=== PATIENT | male | born 1985 | race Caucasian/White ===

== ENCOUNTER 2017-09-09 00:18 | Emergency (ER) | payer MEDICAID, SELFPAY ==
[2017-09-09 00:19] VITALS: BP 108/68; PULSE 70; RESP 18; TEMP 36.6; O2SAT 99; BMI 19.2
--- NOTE | 2017-09-09 00:31 | RAD_ITS ---
STUDY: X-RAY - RIGHT KNEE REASON FOR EXAM: Male, 32 years old. Pain entire knee x3 days TECHNIQUE: 3 view(s) of the knee. COMPARISON: None. FINDINGS: Normal visualized distal femur. Normal visualized proximal tibia and fibula. Normal proximal tibiofibular articulation. Mild narrowing of the medial femorotibial compartment. Normal lateral femorotibial compartment. Normal patellofemoral articulation. There is no demonstrated joint effusion. The soft tissue structures are unremarkable. RAD/Knee 3 Views IMPRESSION: Narrowing of the medial femoral tibial compartment possibly due to early degeneration. Electronically Signed: Cayla Kim MD at 3:37 EDT , Service support ,
--- NOTE | 2017-09-09 00:32 | ED.VISSUMM ---
- ER Visit Summary Date of Service: 09/09/17 Chief Complaint: Right knee pain History of Present Illness: The patient is a 3 day history of nontraumatic right knee pain for the past 3 days. Symptoms worse with prolonged ambulation. States knee did lock up a couple times today. Intermittent Tylenol use. History of similar with weather changes. He denies history of gastric ulcers or kidney injuries. No paresthesias. No previous evaluations. Physical Examination: General: Alert and oriented ?3, no acute distress HEENT: Normocephalic, atraumatic. Moist mucosa membranes Neck: supple, nontender. Cardiovascular: Regular rate and rhythm, no murmurs Respiratory: Normal breath sounds, symmetric, no distress Abdomen: Soft, nontender, nondistended Extremities: Right lower extremity: Negative logroll. Knee extensor mechanism intact. Negative varus valgus. Positive Marielena's with valgus stress. Neuro: no focal neurological deficits. Test Results: Right knee x-ray: Mild arthritis Emergency Department Course and Treatment: Patient nontraumatic injury. History concerns for possible meniscus injury with catching and locking. He had positive Marielena's. X-ray obtained for baseline imagings, notes mild arthritis changes reviewed by myself. Given Motrin in the ED. He will continue Tylenol Motrin follow with PCP for further testing and treatment as an outpatient. All questions were answered. Treatment Plan: [] Disposition: Discharge Impression: Right knee arthritis possible meniscus injury This note was generated with [employer] dictation software. It may contain incorrect words, spelling, and punctuation that were not noted in review of the chart prior to signing ED Disposition - Plan for ED Patient: Disposition: Home or Assisted Living Chief Complaint: Lower Extremity Injury Diagnosis: Arthritis of right knee Instructions: ED Meniscal Injury Knee Poss Referrals: Ben Helm DO [Primary Care Provider] - 3-5 Days
[2017-09-09] MEDS: Ibuprofen 600 MG Tablet PO (00:34)
[2017-09-09 01:20] VITALS: BP 108/68; PULSE 70; RESP 18; O2SAT 99
== END 2017-09-09 01:21 | disposition home or self-care (01) ==
PROVIDERS: Emergency Provider Emergency Medicine; Family Provider Student in an Organized Health Care Education/Training Program; PCP Student in an Organized Health Care Education/Training Program
DX: M17.11 Unilateral primary osteoarthritis, right knee (principal); R56.9 Unspecified convulsions; Z79.899 Other long term (current) drug therapy
CPT/HCPCS: 73562; 99283

== ENCOUNTER 2018-04-20 19:39 | Emergency (ER) | payer MEDICAID, SELFPAY ==
[2018-04-20 19:40] VITALS: BP 104/57; PULSE 100; RESP 19; TEMP 36.4; O2SAT 97; BMI 19.5
--- NOTE | 2018-04-20 20:00 | RAD_ITS ---
STUDY: X-RAY - LEFT SHOULDER REASON FOR EXAM: Male, 32 years old. Pain. Injury TECHNIQUE: 4 view(s) of the shoulder. COMPARISON: None. FINDINGS: Normal glenohumeral articulation. Normal acromioclavicular joint. Normal acromion. Normal humeral head and visualized proximal humerus. The soft tissue structures are unremarkable. There is no demonstrated fracture. Normal visualized pulmonary apex. RAD/Shoulder min 2 Views IMPRESSION: Normal x-ray examination of the shoulder. Electronically Signed: Josafat Mesa MD at 21:20 EST , Service support ,
[2018-04-20] MEDS: Naproxen 500 MG Tablet PO (20:10)
--- NOTE | 2018-04-20 21:21 | ED.VISSUMM ---
- ER Visit Summary Date of Service: 04/20/18 Chief Complaint: Left shoulder injury History of Present Illness: The patient is a 32 M who reportedly injured his left shoulder last night when trying to help carry a dresser upstairs. The person helping him dropped his side and the dresser hit the front of his left shoulder. He is feeling better today and was wrestling around with his son. He denies increased pain. He denies paresthesias. Physical Examination: Vital signs unremarkable. Patient sitting upright in bed no acute distress. Heart is regular rate and rhythm without murmur. Lungs sounds clear. Left upper extremity examination reveals mild tenderness of the posterior portion of the left shoulder. No sign of dislocation. Good range of motion is noted with strong distal pulses. Test Results: Left shoulder x-rays are unremarkable. Emergency Department Course and Treatment: Patient is given naproxen here. On repeat evaluation patient is resting comfortably. He is requesting a work note stating that he was seen and evaluated today. Treatment Plan: [] Disposition: Discharge Impression: Left shoulder sprain This note was generated with [employer] dictation software. It may contain incorrect words, spelling, and punctuation that were not noted in review of the chart prior to signing ED Disposition - Plan for ED Patient: Chief Complaint: Upper Extremity Injury Referrals: Ben Helm DO [Primary Care Provider] -
--- NOTE | 2018-04-20 21:24 | ED.DEP ---
ED Disposition - Plan for ED Patient: Disposition: Home or Assisted Living Chief Complaint: Upper Extremity Injury Instructions: ED Sprain Shoulder Referrals: Ben Helm DO [Primary Care Provider] - As Needed
[2018-04-20 21:44] VITALS: RESP 14
== END 2018-04-20 21:45 | disposition home or self-care (01) ==
PROVIDERS: Emergency Provider Emergency Medicine; Family Provider Student in an Organized Health Care Education/Training Program; PCP Student in an Organized Health Care Education/Training Program
DX: S43.402A Unspecified sprain of left shoulder joint, initial encounter (principal); R56.9 Unspecified convulsions; F17.220 Nicotine dependence, chewing tobacco, uncomplicated; Z79.899 Other long term (current) drug therapy; X50.0XXA Overexertion from strenuous movement or load, initial encounter; Y93.89 Activity, other specified; Y92.89 Other specified places as the place of occurrence of the external cause; Y99.8 Other external cause status
CPT/HCPCS: 73030; 99283

== ENCOUNTER 2018-05-08 18:57 | Emergency (ER) | payer MEDICAID, SELFPAY ==
[2018-05-08 18:58] VITALS: BP 126/78; PULSE 92; RESP 12; TEMP 36.1; BMI 19.0
--- NOTE | 2018-05-08 19:16 | RAD_ITS ---
STUDY: X-RAY - LEFT WRIST REASON FOR EXAM: Male, 33 years old. Pain left wrist TECHNIQUE: 3 view(s) of the wrist were obtained. COMPARISON: None. FINDINGS: Old avulsion fracture ulnar styloid. Distal radius normal. Normal radiocarpal articulation. Normal distal radioulnar articulation. Normal carpal bones. Normal carpal articulations. Normal carpometacarpal articulation of the thumb. Normal second through fifth carpometacarpal articulations. Normal visualized metacarpal bones. The soft tissue structures are unremarkable. RAD/Wrist min 3 Views IMPRESSION: Old fracture ulnar styloid Electronically Signed: Jeff Garcia MD at 20:26 EST , Service support ,
--- NOTE | 2018-05-08 19:33 | ED.DCSUM_ITS ---
- ER Visit Summary Date of Service: 05/08/18 Chief Complaint: Left wrist pain History of Present Illness: The patient is a 33 M who has left wrist pain. He states he fell on the ice yesterday. He caught himself with his left hand. He has pain in the left wrist. Is worse with movement. He tried Tylenol which did help. He has a history of a mid shaft radius fracture on the left side. Physical Examination: Vital signs reviewed. Left wrist exam reveals diffuse tenderness to palpation. He does have painful but full range of motion. He has 2+ radial pulses. No abnormalities are seen. No ecchymosis or deformity. Test Results: X-rays per my interpretation reveals an old ulnar styloid fracture with no evidence of acute fracture Emergency Department Course and Treatment: Patient will continue ice and NSAIDs at home. He will follow-up with his PCP Treatment Plan: [] Disposition: Discharge Impression: Left wrist sprain This note was generated with [employer] dictation software. It may contain incorrect words, spelling, and punctuation that were not noted in review of the chart prior to signing ED Disposition - Plan for ED Patient: Chief Complaint: Upper Extremity Injury Referrals: Ben Helm DO [Primary Care Provider] -
--- NOTE | 2018-05-08 19:33 | ED.DEP ---
ED Disposition - Plan for ED Patient: Disposition: Home or Assisted Living Chief Complaint: Upper Extremity Injury Instructions: ED Sprain Wrist Referrals: Ben Helm DO [Primary Care Provider] -
[2018-05-08 19:37] VITALS: PULSE 71; RESP 22; O2SAT 97
--- NOTE | 2018-05-08 19:39 | ED.RN ---
THIS NURSE REVIEWED D/C INSTRUCTIONS WITH PT. PT VERBALIZED UNDERSTANDING OF INSTRUCTIONS. PT GIVEN DR SPEAR FOR THE TIME HE WAS IN THE ER. PT DENIES FURTHER NEEDS OR QUESTIONS AT THIS TIME. PT AMBULATES FROM ROOM ON OWN WITHOUT ASSISTANCE FROM STAFF
== END 2018-05-08 19:40 | disposition home or self-care (01) ==
PROVIDERS: Emergency Provider Emergency Medicine; Family Provider Student in an Organized Health Care Education/Training Program; PCP Student in an Organized Health Care Education/Training Program
DX: S63.502A Unspecified sprain of left wrist, initial encounter (principal); Z72.0 Tobacco use; W00.0XXA Fall on same level due to ice and snow, initial encounter; Y93.89 Activity, other specified; Y92.89 Other specified places as the place of occurrence of the external cause; Y99.8 Other external cause status
CPT/HCPCS: 73110; 99282

== ENCOUNTER 2018-06-19 22:44 | Emergency (ER) | payer MEDICAID, SELFPAY ==
[2018-06-19 22:46] VITALS: BP 106/58; PULSE 86; RESP 18; TEMP 36.7; O2SAT 99; BMI 19.1
[2018-06-20 00:40] LABS: Absolute Lymphocyte Count 1.22 X10^3/ul (0.83-4.51); Absolute Neutrophil Count 4.2 X10^3/uL (2.0-7.7); Basophil# 0.04 X10^3/uL; Basophil% 0.7 % (0-1); Eosinophil# 0.07 X10^3/uL; Eosinophils% 1.1 % (0-5); Hematocrit 43.3 % (40-54); Hemoglobin 14.7 g/dl (13.0-16.5); Lymphocyte # 1.22 X10^3/ul (4.0); Lymphocyte % 19.9 % (19-41); Mean Corp Hgb Conc 33.9 g/gl (32-36); Mean Corpuscular Hgb 30.3 pg (27.0-32.0); Mean Corpuscular Volume 89.3 fL (80-94); Mean Platelet Vol. 10.2 fl (6.2-12.0); Monocyte# 0.57 X10^3/uL; Monocyte% 9.3 % (0-10); Neutrophil # 4.22 X10^3/uL (2.7-7.7); Neutrophil % 68.8 % (47-70); Platelet Count 284 K/mm3 (150-450); RBC Distribution Width CV 13.1 % (11.6-14.6); RBC Distribution Width SD 42.5 fl (35.1-43.9); Red Blood Count 4.85 M/mm3 (4.6-6.2); White Blood Count 6.1 K/mm3 (4.4-11.0)
[2018-06-20 00:43] LABS: POSITIVE COUNT NO; POSITIVE DIFFERENTIAL NO; POSITIVE MORPHOLOGY NO
[2018-06-20 00:53] LABS: ALB/GLOB Ratio 1.3 RATIO (0.9-2.4); AST(SGOT) 14 U/L (15-37); Alanine Aminotransfer ALT/SGPT 15 U/L (16-61); Alkaline Phosphatase 79 U/L (45-117); Anion Gap 5 (5-15); BUN 10 mg/dL (7-18); BUN/Creat Ratio 10.2 RATIO (10-20); Calcium,Total 8.5 mg/dL (8.5-10.1); Chloride 107 mmol/L (98-107); Creatinine, Serum 0.98 mg/dL (0.70-1.30); EST Glomerular Filtration Rate 94 mL/min (>60); Est Glom Filt Rate - Afr Amer 113 mL/min (>60); Estimated Creatinine Clearance 104.94 ml/min; Globulin 3.1 g/dL (2.2-4.2); Glucose 74 mg/dL (74-106); Potassium 4.1 mmol/L (3.5-5.1); Protein, Total 7.1 g/dL (6.4-8.2); Sodium Level 140 mmol/L (136-145)
[2018-06-20] MEDS: 0.9% Normal Saline 1,000 ML 999 ML IV (02:08)
[2018-06-20 02:10] VITALS: BP 110/81; PULSE 63; RESP 18; TEMP 36.4; O2SAT 100
--- NOTE | 2018-06-20 03:10 | ED.DCSUM_ITS ---
- ER Visit Summary Date of Service: 06/20/18 Chief Complaint: Dizzy, nausea History of Present Illness: The patient is a 33 M who states he got up at 9 PM last evening to go to work as he works third shift. He felt dizzy and lightheaded. He had some mild nausea that seem to improve after eating dinner. He denied headache. He did not have chest pain or palpitations. Physical Examination: Vital signs unremarkable. Patient sitting upright in bed no acute distress. Head and neck examination is unremarkable. Heart is regular rate and rhythm. Lung sounds are clear. Abdomen soft nontender. Neuro exam is unremarkable. Test Results: CBC and chemistry studies normal. LFTs normal. Emergency Department Course and Treatment: Patient given a liter of IV fluids. Repeat evaluation he does feel improved. He is given a work note for tonight. Treatment Plan: [] Disposition: Discharge Impression: Dizziness, resolved This note was generated with [employer] dictation software. It may contain incorrect words, spelling, and punctuation that were not noted in review of the chart prior to signing ED Disposition - Plan for ED Patient: Disposition: Home or Assisted Living Instructions: ED Dizziness [facility] Referrals: Ben Helm DO [Primary Care Provider] - As Needed
--- NOTE | 2018-06-20 03:12 | ED.DEP ---
ED Disposition - Plan for ED Patient: Disposition: Home or Assisted Living Instructions: ED Dizziness [facility] Referrals: Ben Helm DO [Primary Care Provider] - As Needed
[2018-06-20 03:27] VITALS: BP 104/71; PULSE 72; RESP 16; O2SAT 100
== END 2018-06-20 03:28 | disposition home or self-care (01) ==
PROVIDERS: Emergency Provider Emergency Medicine; Family Provider Student in an Organized Health Care Education/Training Program; PCP Student in an Organized Health Care Education/Training Program
DX: R42 Dizziness and giddiness (principal); R56.9 Unspecified convulsions; Z79.899 Other long term (current) drug therapy
CPT/HCPCS: 80053; 85025; 96360; 99282; J7030; A4216